=== PATIENT | male | born 1950 | race Caucasian/White ===

== ENCOUNTER 2017-08-13 09:42 | Outpatient (CLI) | payer BC, MEDICARE ==
--- NOTE | 2017-08-13 10:31 | RAD ---
LUMBAR SPINE 3 VIEWS: Date: 08/13/17 HISTORY: Pain. COMPARISON: None. FINDINGS: No acute fracture or malalignment. Mild degenerative disc space narrowing at L5-S1. Mild facet arthro tripp at L4-5 and L5-S1. Moderate vascular calcifications. No abnormal calcifications directed over the renal shadows. There are phleboliths in the pelvis. IMPRESSION: Minimal spondylosis at L5-S1. No fracture or malalignment. POS: [facility]
--- NOTE | 2017-08-13 10:36 | RAD ---
THORACIC SPINE 2 VIEWS: Date: 08/13/17 HISTORY: Shortness of breath. COMPARISON: Chest 2 view dated 2013. FINDINGS: No acute fracture. No malalignment. Mid thoracic spine compression fracture is similar. No further he ight loss. IMPRESSION: 1. No acute fracture or malalignment. 2. Old T8 compression deformity involving the superior end plate and anterior vertebral body with 20 % height loss. POS: [facility]
== END 2017-08-13 09:43 | disposition home or self-care (01) ==
LOC: RAD-FRANK 09:42
PROVIDERS: ATTEND Nurse Practitioner Family
DX: M54.6 Pain in thoracic spine (principal); M54.10 Radiculopathy, site unspecified
CPT/HCPCS: 36415; 72070; 72100; 80053; 84443; 85007; 85027

== ENCOUNTER 2017-08-26 09:22 | Outpatient (CLI) | payer BC, MEDICARE ==
--- NOTE | 2017-08-26 11:53 | ULT ---
BILATERAL LOWER EXTREMITY VENOUS DUPLEX STUDY: History: Bilateral leg pain and edema. FINDINGS: Deep veins of both lower extremities with ultrasound color doppler with spectral analysis and smita veda. Deep veins of both lower extremities show normal blood flow and compression. No evidence of DVT. IMPRESSION: Negative bilateral lower extremity venous duplex exam. No evidence of DVT. POS: [facility]
--- NOTE | 2017-08-26 13:12 | ULT ---
BILATERAL LOWER EXTREMITY ARTERIAL DOPPLER STUDY: TECHNIQUE: Ultrasound Doppler study is performed on the arteries of both lower extremities. Color Doppler with spectral analysis and velocity recordings obtained at all segments. HISTORY: Bilateral leg pain. History of smoking. Right lower extremity: All arteries of the right lower extremity show a biphasic waveform. Common femoral artery, profunda femoral, superficial femoral, popliteal, anterior tibial, and posterior tibial arteries are evaluated . The dorsal pedis artery is not identified. Velocities appear symmetric. Left lower extremity: All arteries of the left lower extremity show a biphasic waveform. Common femoral, profunda femoral, superficial, popliteal, anterior tibial, posterior tibial, and dorsalis pedis arteries evaluated. V elocities appear symmetric. IMPRESSION: Bi-phasic waveforms seen throughout all arteries of both lower extremities. Would indicate only mild peripheral arterial disease. POS: [facility]
== END 2017-08-26 09:23 | disposition home or self-care (01) ==
LOC: ULT 09:22
PROVIDERS: ATTEND Nurse Practitioner Family
DX: M79.605 Pain in left leg (principal); M79.604 Pain in right leg; R93.8 Abnormal findings on diagnostic imaging of other specified body structures; Z72.0 Tobacco use
CPT/HCPCS: 93923; 93970

== ENCOUNTER 2018-02-14 15:07 | Outpatient (CLI) | payer BC, MEDICARE ==
--- NOTE | 2018-02-14 16:39 | RAD ---
FRONTAL AND LATERAL IMAGING OF CHEST: Date: 02/14/18 COMPARISON: 06/28/14. HISTORY: COPD. FINDINGS: Stable increased linear and interstitial density and pulmonary hyperinflation noted, consistent with the provided history of COPD. There is no pneumothorax, pleural fluid, focal consolidation, or alveol ar edema. IMPRESSION: Stable interstitial prominence and pulmonary hyperinflation, consistent with the provided history of COPD. POS: [facility]
== END 2018-02-14 15:08 | disposition home or self-care (01) ==
LOC: RAD-FRANK 15:07
PROVIDERS: ATTEND Nurse Practitioner Family
DX: J44.1 Chronic obstructive pulmonary disease with (acute) exacerbation (principal); E03.9 Hypothyroidism, unspecified; R63.6 Underweight; R91.8 Other nonspecific abnormal finding of lung field; Z72.0 Tobacco use
CPT/HCPCS: 71046

== ENCOUNTER 2018-02-16 11:49 | Emergency (ER) | payer BC, MEDICARE ==
[2018-02-16 12:58] LABS: #Lymphocytes 1.3 thou/uL (1.20-3.40); #Monocytes 0.6 thou/uL (0.11-0.59); #Neutrophils 6.1 thou/uL (1.40-6.50); %Basophils 0.5 % (0.0-1.0); %Eosinophils 0.4 % (0.0-10.0); %Lymphocytes 15.8 % (21.0-51.0); %Monocytes 7.1 % (0.0-10.0); %Neutrophils 76.1 % (42.0-75.0); Hemoglobin 15.1 g/dL (14.0-18.0); Mean Corpuscular HGB CONC 33.4 g/dL (32.0-36.0); Mean Corpuscular Hemoglobin 31.4 pg (27.0-31.0); Mean Platelet Volume 6.4 fL (7.4-10.4); Platelet Count 416 thou/uL (130-400); RBC Distribution Width 11.5 % (11.5-14.5); Red Blood Cell (RBC) Count 4.81 mill/uL (4.70-6.10)
[2018-02-16 13:03] LABS: Bilirubin Negative (Negative); Blood, Urine Negative (Negative); Clarity CLEAR (Clear); Glucose, Urine (Dipstick) Negative (Negative); Leukocyte Negative (Negative); Nitrite Negative (Negative); Protein, Urine (Dipstick) Negative (Neg-Trace); Specific Gravity, Urine 1.005 (1.002-1.036); Urobilinogen 0.2 mg/dL (0.2-1.0)
[2018-02-16 13:20] LABS: Anion Gap 10 mmol/L (10-20); BUN (Urea Nitrogen) 18 mg/dL (8.4-25.7); Calc. Creatinine Clearance 0 mL/min (70-130); Calcium 9.3 mg/dL (7.8-10.44); Carbon Dioxide 32 mmol/L (23-31); Chloride 99 mmol/L (98-107); Estimated GFR-MDRD Greater than 90; Glucose 77 mg/dL (80-115); Potassium 4.3 mmol/L (3.5-5.1); Sodium 137 mmol/L (136-145)
--- NOTE | 2018-02-16 13:21 | RAD ---
PORTABLE CHEST 1 VIEW: Date: 02/16/18 Time: 1245 hours HISTORY: Dyspnea. FINDINGS/IMPRESSION: Comparison made with exam of 02/14/18. The heart size is normal. The aorta is tortuous. Changes of COPD are again seen. No lobar consolidati on, pneumothoraces, or pleural effusions are identified. There is suggestion of a 15.0 mm nodule in t he left lower lung, not definitely seen on the previous study. Recommend obtaining PA and lateral views with nipple markers. POS: [facility]
[2018-02-16] MEDS ORDERED: ISOVUE-370 76%-LOCM 1 ML ONE (13:42)
--- NOTE | 2018-02-16 15:02 | CT ---
CT ANGIO CHEST PERFORMED WITH INTRAVENOUS CONTRAST ENHANCEMENT WITH 3D RECONSTRUCTIONS: HISTORY: Shortness of breath. Cough. FINDINGS: There are marked emphysematous lung changes noted, particularly prominent changes of the upper lobes. There are no infiltrative changes seen. There are no pulmonary nodules or pleural effusions identi fied. No significant mediastinal or hilar adenopathy. Coronary artery calcifications are seen. The thorac ic aorta is normal in caliber. There is good pulmonary artery opacification obtained. There is no CT evidence for pulmonary embolus . The visualized liver parenchyma shows hypodensity within the left lobe, most likely a cyst. The stom ach wall shows questionable thickening versus under-distention. Clinical correlation and endoscopy s hould be based on clinical findings. IMPRESSION: 1. Marked emphysematous lung change. 2. No CT evidence for pulmonary embolus. 3. Questionable wall thickening to the stomach versus incomplete distention. If clinically indicated, consideration for endoscopy would be suggested. POS: [facility]
== END 2018-02-16 15:27 | disposition home or self-care (01) ==
LOC: ERS 11:49
DX: J44.1 Chronic obstructive pulmonary disease with (acute) exacerbation (principal); F17.210 Nicotine dependence, cigarettes, uncomplicated; Z71.6 Tobacco abuse counseling
CPT/HCPCS: 71045; 71275; 80048; 81003; 85025; 94640; 99406; J7620

== ENCOUNTER 2018-12-09 10:55 | Outpatient (CLI) | payer MEDICARE ==
--- NOTE | 2018-12-09 12:30 | CT ---
CT OF CHEST PERFORMED WITH CONTRAST ENHANCEMENT: Date: 12/09/18 HISTORY: COPD, tobacco abuse, abnormal previous CT exams. COMPARISON: CT studies of 07/20/17 and 02/16/18. FINDINGS: There are marked emphysematous lung changes again demonstrated, which are more severe in the upper lo bes. Pattern of centrilobular emphysema. There is no evidence of any pleural effusions. No pulmonary nodules are identified. No significant mediastinal or hilar adenopathy. The small mediastinal nodes are probably reactive and stable. No significant axillary adenopathy. Visualized liver parenchyma shows a persistent hypodense lesion in the left lobe of the liver most co mpatible with a cyst. Right and left adrenal glands are normal. Coronary calcifications are seen. There are atherosclerotic changes of the aorta. 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 Visualized portions of the kidn eys are unremarkable. IMPRESSION: Stable overall exam. Severe emphysematous lung change. POS: [facility]
[2018-12-09] MEDS ORDERED: ISOVUE-370 76%-LOCM 1 ML ONE (15:27)
== END 2018-12-09 10:56 | disposition home or self-care (01) ==
LOC: BICCT 10:55
PROVIDERS: ATTEND Nurse Practitioner Family
DX: J43.8 Other emphysema (principal); R93.89 Abnormal findings on diagnostic imaging of other specified body structures; Z72.0 Tobacco use
CPT/HCPCS: 71260; Q9966

== ENCOUNTER 2019-02-18 11:56 | Emergency (ER) | payer MEDICARE | END 2019-02-18 13:44 | disposition home or self-care (01) | LOC: ERS 11:56 | DX: T17.208A Unspecified foreign body in pharynx causing other injury, initial encounter (principal); J44.9 Chronic obstructive pulmonary disease, unspecified; F17.210 Nicotine dependence, cigarettes, uncomplicated | CPT/HCPCS: 99283 ==

== ENCOUNTER 2020-02-27 08:03 | Outpatient (CLI) | payer MEDICARE, BC ==
--- NOTE | 2020-02-27 08:29 | RAD ---
EXAM: Chest 2 views: HISTORY: Dyspnea COMPARISON: 02/14/2018 FINDINGS: There is a normal-sized cardiomediastinal silhouette. Hyperexpansion of the lungs may be secondary t o COPD. There is no evidence of consolidation, mass, or pleural effusion. The bones are unremarkable. IMPRESSION: No evidence of acute cardiopulmonary disease
== END 2020-02-27 08:04 | disposition home or self-care (01) ==
LOC: BICRAD 08:03
PROVIDERS: ATTEND Internal Medicine Critical Care Medicine
DX: R06.00 Dyspnea, unspecified (principal)
CPT/HCPCS: 71046

== ENCOUNTER 2020-12-02 01:50 | Inpatient (IN) | payer MEDICARE ==
[2020-12-02] MEDS ORDERED: Fentanyl CADD 100 ML IV SCH (02:15)
[2020-12-02 02:23] LABS: Analyzer IN Cardio ER; Base Excess (BEa) 0.1 mEq/L (-2.0 to +3.0); CO2 Tension 46.8 mmHg (35.0-45.0); Calcium, Ionized (arterial) 1.07 mmol/L (1.12-1.30); Carboxyhemoglobin (COHb) 2.6 gm% (0.0-3.0); Hemoglobin (Hb) 13.2 g/dL (14.0-18.0); O2 Tension (PaO2), arterial 113.9 mmHg (> 70.0); Potassium - ABG Lab 3.03 mmol/L (3.70-5.30); pH, Arterial 7.36 (7.35-7.45)
[2020-12-02 02:24] LABS: Puncture Site LRA
[2020-12-02 02:33] LABS: #Eosinphils 0.3 thou/uL (0.0-0.7); #Lymphocytes 2.5 thou/uL (1.20-3.40); #Monocytes 0.6 thou/uL (0.11-0.59); #Neutrophils 8.1 thou/uL (1.40-6.50); %Basophils 0.4 % (0.0-1.0); %Eosinophils 2.3 % (0.0-10.0); %Lymphocytes 21.6 % (21.0-51.0); %Monocytes 5.2 % (0.0-10.0); %Neutrophils 70.5 % (42.0-75.0); Mean Corpuscular HGB CONC 33.6 g/dL (32.0-36.0); Mean Corpuscular Hemoglobin 32.2 pg (27.0-31.0); Mean Corpuscular Volume 95.8 fL (78.0-98.0); Mean Platelet Volume 7.1 fL (7.4-10.4); Platelet Count 220 thou/uL (130-400); RBC Distribution Width 12.4 % (11.5-14.5); Red Blood Cell (RBC) Count 3.71 mill/uL (4.70-6.10); White Blood Cell (WBC) Count 11.4 thou/uL (4.8-10.8)
[2020-12-02 02:36] LABS: ALT (SGPT) 22 U/L (8-55); AST (SGOT) 25 U/L (5-34); Alkaline Phosphatase 60 U/L (40-110); Anion Gap 12 mmol/L (10-20); BUN (Urea Nitrogen) 15 mg/dL (8.4-25.7); Bilirubin, Total 0.2 mg/dL (0.2-1.2); Calc. Creatinine Clearance 0 mL/min (70-130); Calcium 7.1 mg/dL (7.8-10.44); Carbon Dioxide 25 mmol/L (23-31); Chloride 107 mmol/L (98-107); Glucose 277 mg/dL (83-110); Potassium 3.4 mmol/L (3.5-5.1); Sodium 141 mmol/L (136-145)
[2020-12-02] MEDS ORDERED: Midazolam HCl 5 mg/ml Vial ONE (02:45)
[2020-12-02 02:50] LABS: Bacteria/HPF None Seen HPF (None Seen); Bilirubin Negative (Negative); Blood, Urine Negative (Negative); Clarity Clear (Clear); Glucose, Urine (Dipstick) 500 mg/dL (Negative); Ketone, Urine Negative (Negative); Leukocyte Negative Leu/uL (Negative); Nitrite 2+ (Negative); Protein, Urine (Dipstick) 10 mg/dL (Neg-Trace); RBC/HPF 0-3 HPF (0-3); Specific Gravity, Urine 1.014 (1.002-1.036); Squamous Epithelial None Seen HPF (0-3); Urobilinogen Normal mg/dL (Less than 2); WBC/HPF 0-3 HPF (0-3)
[2020-12-02 02:58] LABS: CKMB 2.4 ng/mL (0-6.6)
[2020-12-02] MEDS ORDERED: EPINEPHrine 1 MG/10 ML Abboject SYRINGE ONE (03:13)
[2020-12-02 03:25] LABS: SARS-CoV-2 NAA Rapid Test Not Detected (NotDetected)
[2020-12-02] MEDS ORDERED: Norepinephrine 8 MG/0.9% NS 250 ML ONE (03:32)
[2020-12-02] MEDS ORDERED: Cefepime 2 GM VIAL ONE (03:53)
[2020-12-02] MEDS ORDERED: Ondansetron PF 4 MG/2 ML Vial IVP PRN (04:10)
[2020-12-02] MEDS ORDERED: Acetaminophen 325 MG TAB PO PRN (04:10)
[2020-12-02] MEDS ORDERED: Albuterol Sulfate 2.5 mg/3 ml Neb NEB PRN (04:16)
[2020-12-02] MEDS ORDERED: Potassium Chloride 20 MEQ in Premix Bag 1 BAG IVPB SCH (04:30)
[2020-12-02] MEDS ORDERED: HumaLOG 300 UNITS/3 ML VIAL SC PRN (04:44)
[2020-12-02] MEDS ORDERED: Dextrose 50% Abboject 50 ML SYRINGE SLOW IVP PRN (04:44)
[2020-12-02] MEDS ORDERED: Dextrose 5% in Water 1,000 ML IV PRN (04:44)
[2020-12-02 06:05] LABS: Troponin I 0.363 ng/mL (< 0.028)
[2020-12-02] MEDS: Sodium Chloride 0.9% 1,000 ML IV SCH ×2 (06:07→16:50)
[2020-12-02] MEDS ORDERED: Norepinephrine 8 MG/0.9% NS 250 ML IVPB SCH (07:00)
[2020-12-02] MEDS: VANCOMYCIN 1.25 GM/250 ML BAG 1.25 GM in Premix Bag 1 BAG IVPB SCH (07:58)
[2020-12-02 08:30] LABS: Troponin I 0.504 ng/mL (< 0.028)
[2020-12-02] MEDS ORDERED: Lorazepam 2 MG/ML VIAL ONE (08:45)
[2020-12-02] MEDS ORDERED: Morphine 4 MG/ML VIAL ONE (08:45)
[2020-12-02] MEDS: Enoxaparin Sodium 40 MG/0.4 ML SYRINGE SC SCH (10:12)
[2020-12-02] MEDS: Famotidine 20 MG TAB PO SCH ×2 (10:12→20:01)
[2020-12-02] MEDS ORDERED: Lorazepam 2 MG/ML VIAL SLOW IVP SCH (10:15)
[2020-12-02] MEDS ORDERED: Morphine 4 MG/ML VIAL SLOW IVP SCH (10:15)
[2020-12-02] MEDS ORDERED: Fentanyl CADD 100 ML ONE (12:04)
[2020-12-02] MEDS: methylPREDNISolone Sod Succ 40 MG VIAL IVP SCH ×2 (12:22→20:01)
[2020-12-02] MEDS ORDERED: Iopamidol-370 76% 500 ML 1 ML ONE (14:05)
[2020-12-02] MEDS: Cefepime 2 GM in Sodium Chloride 0.9% 100 ML IVPB SCH (15:37)
[2020-12-02] MEDS ORDERED: Morphine 2 MG/ML VIAL SLOW IVP PRN (16:00)
[2020-12-02] MEDS ORDERED: Propofol BOLUS 1,000 MG/100 ML VIAL IV PRN (16:00)
[2020-12-02] MEDS ORDERED: Fentanyl BOLUS 250 ML IVPB PRN (16:00)
[2020-12-02] MEDS ORDERED: DISCONTINUE PREVIOUS NARCOTIC PAIN MEDICATIONS AND BENZODIAZEPINES FS SCH (16:00)
[2020-12-02] MEDS: Lorazepam 2 MG/ML VIAL SLOW IVP PRN ×2 (16:48→20:01)
[2020-12-03] MEDS: Lorazepam 2 MG/ML VIAL SLOW IVP PRN ×3 (00:18→19:59)
[2020-12-03] MEDS ORDERED: Fentanyl CADD 100 ML ONE ×2 (03:19→16:55)
[2020-12-03] MEDS: Cefepime 2 GM in Sodium Chloride 0.9% 100 ML IVPB SCH ×2 (03:33→16:46)
[2020-12-03] MEDS: methylPREDNISolone Sod Succ 40 MG VIAL IVP SCH ×3 (03:33→20:05)
[2020-12-03 05:05] LABS: #Lymphocytes 1.1 thou/uL (1.20-3.40); #Monocytes 0.8 thou/uL (0.11-0.59); #Neutrophils 10.6 thou/uL (1.40-6.50); %Basophils 0.3 % (0.0-1.0); %Eosinophils 0.1 % (0.0-10.0); %Lymphocytes 8.9 % (21.0-51.0); %Monocytes 6.1 % (0.0-10.0); %Neutrophils 84.7 % (42.0-75.0); Hemoglobin 11.1 g/dL (14.0-18.0); Mean Corpuscular HGB CONC 32.5 g/dL (32.0-36.0); Mean Corpuscular Hemoglobin 31.2 pg (27.0-31.0); Mean Corpuscular Volume 96.2 fL (78.0-98.0); Mean Platelet Volume 7.6 fL (7.4-10.4); Platelet Count 246 thou/uL (130-400); RBC Distribution Width 12.7 % (11.5-14.5); Red Blood Cell (RBC) Count 3.56 mill/uL (4.70-6.10); White Blood Cell (WBC) Count 12.5 thou/uL (4.8-10.8)
[2020-12-03 05:09] LABS: Hemoglobin A1c 5.7 % (4.0-6.0)
[2020-12-03 05:28] LABS: Anion Gap 10 mmol/L (10-20); BUN (Urea Nitrogen) 14 mg/dL (8.4-25.7); Calc. Creatinine Clearance 69 mL/min (70-130); Calcium 7.5 mg/dL (7.8-10.44); Carbon Dioxide 26 mmol/L (23-31); Chloride 111 mmol/L (98-107); Glucose 135 mg/dL (83-110); Magnesium 1.8 mg/dL (1.6-2.6); Potassium 4.1 mmol/L (3.5-5.1); Sodium 143 mmol/L (136-145)
[2020-12-03] MEDS: VANCOMYCIN 1.25 GM/250 ML BAG 1.25 GM in Premix Bag 1 BAG IVPB SCH (08:56)
[2020-12-03] MEDS: Famotidine 20 MG TAB PO SCH ×2 (08:57→20:05)
[2020-12-03] MEDS: Enoxaparin Sodium 40 MG/0.4 ML SYRINGE SC SCH (08:57)
[2020-12-03] MEDS ORDERED: Enoxaparin Sodium 40 MG/0.4 ML SYRINGE SC SCH (09:00)
[2020-12-03] MEDS: Sodium Chloride 0.9% 1,000 ML IV SCH ×2 (09:10→20:05)
[2020-12-03] MEDS: Fentanyl CADD 100 ML IV SCH (17:16)
[2020-12-03] MEDS: Propofol 1,000 MG/100 ML VIAL IV PRN (20:33)
[2020-12-04] MEDS: Lorazepam 2 MG/ML VIAL SLOW IVP PRN ×4 (01:16→22:41)
[2020-12-04] MEDS: Cefepime 2 GM in Sodium Chloride 0.9% 100 ML IVPB SCH ×2 (03:01→16:04)
[2020-12-04] MEDS: methylPREDNISolone Sod Succ 40 MG VIAL IVP SCH ×3 (03:02→19:42)
[2020-12-04 04:30] LABS: #Monocytes 0.3 thou/uL (0.11-0.59); %Basophils 0.2 % (0.0-1.0); %Eosinophils 0.1 % (0.0-10.0); %Lymphocytes 11.3 % (21.0-51.0); %Monocytes 2.7 % (0.0-10.0); %Neutrophils 85.8 % (42.0-75.0); Hemoglobin 10.8 g/dL (14.0-18.0); Mean Corpuscular HGB CONC 33.7 g/dL (32.0-36.0); Mean Corpuscular Hemoglobin 32.2 pg (27.0-31.0); Mean Corpuscular Volume 95.5 fL (78.0-98.0); Mean Platelet Volume 7.6 fL (7.4-10.4); Platelet Count 223 thou/uL (130-400); RBC Distribution Width 12.7 % (11.5-14.5); Red Blood Cell (RBC) Count 3.36 mill/uL (4.70-6.10); White Blood Cell (WBC) Count 9.3 thou/uL (4.8-10.8)
[2020-12-04 04:52] LABS: Anion Gap 9 mmol/L (10-20); BUN (Urea Nitrogen) 20 mg/dL (8.4-25.7); Calc. Creatinine Clearance 80 mL/min (70-130); Calcium 7.5 mg/dL (7.8-10.44); Carbon Dioxide 25 mmol/L (23-31); Chloride 109 mmol/L (98-107); Glucose 130 mg/dL (83-110); Magnesium 2.2 mg/dL (1.6-2.6); Potassium 3.5 mmol/L (3.5-5.1); Sodium 139 mmol/L (136-145)
[2020-12-04] MEDS: VANCOMYCIN 1.25 GM/250 ML BAG 1.25 GM in Premix Bag 1 BAG IVPB SCH (08:19)
[2020-12-04] MEDS: Famotidine 20 MG TAB PO SCH ×2 (08:20→20:05)
[2020-12-04] MEDS: Enoxaparin Sodium 40 MG/0.4 ML SYRINGE SC SCH (08:21)
[2020-12-04 09:13] LABS: Vancomycin, Trough 29.1 ug/mL
[2020-12-04] MEDS: Sodium Chloride 0.9% 1,000 ML IV SCH ×2 (12:22→23:06)
[2020-12-04] MEDS: Propofol 1,000 MG/100 ML VIAL IV PRN (16:04)
[2020-12-05] MEDS: Lorazepam 2 MG/ML VIAL SLOW IVP PRN ×5 (00:22→21:59)
[2020-12-05] MEDS ORDERED: Fentanyl CADD 100 ML ONE (03:31)
[2020-12-05] MEDS: Cefepime 2 GM in Sodium Chloride 0.9% 100 ML IVPB SCH ×2 (03:35→15:21)
[2020-12-05] MEDS: methylPREDNISolone Sod Succ 40 MG VIAL IVP SCH ×3 (03:35→20:03)
[2020-12-05 03:54] LABS: #Lymphocytes 0.7 thou/uL (1.20-3.40); #Monocytes 0.6 thou/uL (0.11-0.59); #Neutrophils 8.6 thou/uL (1.40-6.50); %Basophils 0.4 % (0.0-1.0); %Eosinophils 0.2 % (0.0-10.0); %Lymphocytes 6.9 % (21.0-51.0); %Monocytes 6.2 % (0.0-10.0); %Neutrophils 86.4 % (42.0-75.0); Hemoglobin 11.3 g/dL (14.0-18.0); Mean Corpuscular HGB CONC 34.5 g/dL (32.0-36.0); Mean Corpuscular Hemoglobin 33.2 pg (27.0-31.0); Mean Platelet Volume 7.5 fL (7.4-10.4); Platelet Count 239 thou/uL (130-400); RBC Distribution Width 12.7 % (11.5-14.5)
[2020-12-05 04:16] LABS: Anion Gap 11 mmol/L (10-20); BUN (Urea Nitrogen) 24 mg/dL (8.4-25.7); Calc. Creatinine Clearance 86 mL/min (70-130); Calcium 7.9 mg/dL (7.8-10.44); Carbon Dioxide 24 mmol/L (23-31); Chloride 107 mmol/L (98-107); Glucose 135 mg/dL (83-110); Magnesium 2.7 mg/dL (1.6-2.6); Potassium 4.1 mmol/L (3.5-5.1); Sodium 138 mmol/L (136-145)
[2020-12-05] MEDS: Propofol 1,000 MG/100 ML VIAL IV PRN ×2 (05:18→17:29)
[2020-12-05 07:58] LABS: Vancomycin, Trough 6.8 ug/mL
[2020-12-05] MEDS: VANCOMYCIN 1.25 GM/250 ML BAG 1.25 GM in Premix Bag 1 BAG IVPB SCH (08:33)
[2020-12-05] MEDS: Enoxaparin Sodium 40 MG/0.4 ML SYRINGE SC SCH (08:36)
[2020-12-05] MEDS: Famotidine 20 MG TAB PO SCH ×2 (08:36→20:03)
[2020-12-05] MEDS ORDERED: VANCOMYCIN 1.25 GM/250 ML BAG 1.25 GM in Premix Bag 1 BAG IVPB SCH (09:00)
[2020-12-05] MEDS ORDERED: Vancomycin 1 GM in Premix Bag 1 BAG IVPB SCH ×2 (09:00→21:00)
[2020-12-05] MEDS ORDERED: Metoclopramide HCl 10 MG/2 ML VIAL IVP PRN (09:35)
[2020-12-05] MEDS ORDERED: Magnesium 2 GM/50 ML 2 GM in Premix Bag 1 BAG IVPB SCH (09:45)
[2020-12-05] MEDS: Scopolamine 1.5 mg/72 hour Patch TD SCH (09:55)
[2020-12-05] MEDS: Sodium Chloride 0.9% 1,000 ML IV SCH (14:29)
[2020-12-05] MEDS ORDERED: guaiFENesin ER 600 MG TAB PO SCH (21:00)
[2020-12-06] MEDS: Lorazepam 2 MG/ML VIAL SLOW IVP PRN ×3 (00:44→06:08)
[2020-12-06] MEDS: Cefepime 2 GM in Sodium Chloride 0.9% 100 ML IVPB SCH ×2 (03:28→15:00)
[2020-12-06] MEDS: methylPREDNISolone Sod Succ 40 MG VIAL IVP SCH ×3 (03:28→20:28)
[2020-12-06] MEDS ORDERED: GUAIFENESIN SF SOLN 200 MG/10 ML UDCUP PO SCH (08:00)
[2020-12-06] MEDS: Enoxaparin Sodium 40 MG/0.4 ML SYRINGE SC SCH (08:28)
[2020-12-06] MEDS: Famotidine 20 MG TAB PO SCH ×2 (08:28→20:27)
[2020-12-06] MEDS: Sodium Chloride 0.9% 1,000 ML IV SCH ×2 (08:37→14:11)
[2020-12-06] MEDS: Propofol 1,000 MG/100 ML VIAL IV PRN ×2 (10:55→20:12)
[2020-12-06] MEDS: GUAIFENESIN SF SOLN 200 MG/10 ML UDCUP PO SCH ×2 (13:50→21:30)
[2020-12-06] MEDS ORDERED: Bisacodyl 10 MG SUPP PR PRN (17:12)
[2020-12-06] MEDS: Metoclopramide HCl 10 MG/2 ML VIAL IVP SCH ×2 (17:24→23:02)
[2020-12-07] MEDS: Cefepime 2 GM in Sodium Chloride 0.9% 100 ML IVPB SCH ×2 (04:23→16:35)
[2020-12-07] MEDS: methylPREDNISolone Sod Succ 40 MG VIAL IVP SCH ×3 (04:23→20:27)
[2020-12-07] MEDS: Sodium Chloride 0.9% 1,000 ML IV SCH ×2 (04:33→18:32)
[2020-12-07] MEDS: Propofol 1,000 MG/100 ML VIAL IV PRN ×3 (04:55→23:16)
[2020-12-07 05:10] LABS: Hemoglobin 11.3 g/dL (14.0-18.0); Mean Corpuscular HGB CONC 32.6 g/dL (32.0-36.0); Mean Corpuscular Hemoglobin 31.4 pg (27.0-31.0); Mean Corpuscular Volume 96.3 fL (78.0-98.0); Mean Platelet Volume 7.3 fL (7.4-10.4); Platelet Count 247 thou/uL (130-400); RBC Distribution Width 12.9 % (11.5-14.5); White Blood Cell (WBC) Count 10.3 thou/uL (4.8-10.8)
[2020-12-07 05:15] LABS: Anion Gap 10 mmol/L (10-20); BUN (Urea Nitrogen) 26 mg/dL (8.4-25.7); Calc. Creatinine Clearance 91 mL/min (70-130); Calcium 8.1 mg/dL (7.8-10.44); Carbon Dioxide 31 mmol/L (23-31); Chloride 103 mmol/L (98-107); Glucose 115 mg/dL (83-110); Potassium 5.2 mmol/L (3.5-5.1); Sodium 139 mmol/L (136-145)
[2020-12-07] MEDS: GUAIFENESIN SF SOLN 200 MG/10 ML UDCUP PO SCH ×3 (06:05→23:16)
[2020-12-07] MEDS: Metoclopramide HCl 10 MG/2 ML VIAL IVP SCH ×4 (06:05→23:16)
[2020-12-07 06:07] LABS: Band 13 % (5-11); Lymphocytes 10 % (21-51); MDiff Complete? YES; Monocytes 10 % (0-10); Neutrophil 67 % (42-75)
[2020-12-07] MEDS: Enoxaparin Sodium 40 MG/0.4 ML SYRINGE SC SCH (11:13)
[2020-12-07] MEDS: Lorazepam 2 MG/ML VIAL SLOW IVP PRN ×2 (11:42→20:27)
[2020-12-07] MEDS: Famotidine 20 MG TAB PO SCH ×2 (12:33→20:27)
[2020-12-07] MEDS ORDERED: Fentanyl CADD 100 ML ONE (20:40)
[2020-12-08] MEDS: Lorazepam 2 MG/ML VIAL SLOW IVP PRN ×2 (03:08→15:48)
[2020-12-08] MEDS: Cefepime 2 GM in Sodium Chloride 0.9% 100 ML IVPB SCH ×2 (04:02→15:48)
[2020-12-08] MEDS: methylPREDNISolone Sod Succ 40 MG VIAL IVP SCH ×3 (04:03→20:24)
[2020-12-08 05:52] LABS: Hemoglobin 11.7 g/dL (14.0-18.0); Mean Corpuscular HGB CONC 34.6 g/dL (32.0-36.0); Mean Corpuscular Hemoglobin 33.4 pg (27.0-31.0); Mean Corpuscular Volume 96.6 fL (78.0-98.0); Platelet Count 234 thou/uL (130-400); RBC Distribution Width 12.7 % (11.5-14.5); Red Blood Cell (RBC) Count 3.49 mill/uL (4.70-6.10); White Blood Cell (WBC) Count 9.5 thou/uL (4.8-10.8)
[2020-12-08 06:06] LABS: Band 9 % (5-11); Lymphocytes 12 % (21-51); MDiff Complete? YES; Monocytes 8 % (0-10); Myelocyte 2 % (0-0); Neutrophil 68 % (42-75); Reactive Lymphocytes 1 % (0-10)
[2020-12-08] MEDS: Metoclopramide HCl 10 MG/2 ML VIAL IVP SCH ×3 (06:06→18:08)
[2020-12-08] MEDS: GUAIFENESIN SF SOLN 200 MG/10 ML UDCUP PO SCH ×3 (06:06→21:43)
[2020-12-08] MEDS: Sodium Chloride 0.9% 1,000 ML IV SCH ×2 (06:07→20:17)
[2020-12-08] MEDS: Levothyroxine Sodium 50 MCG TAB PO SCH (06:07)
[2020-12-08 06:13] LABS: Anion Gap 9 mmol/L (10-20); BUN (Urea Nitrogen) 24 mg/dL (8.4-25.7); Calc. Creatinine Clearance 0 mL/min (70-130); Calcium 8.2 mg/dL (7.8-10.44); Carbon Dioxide 35 mmol/L (23-31); Chloride 99 mmol/L (98-107); Glucose 130 mg/dL (83-110); Potassium 5.1 mmol/L (3.5-5.1); Sodium 138 mmol/L (136-145)
[2020-12-08] MEDS: Famotidine 20 MG TAB PO SCH ×2 (10:19→20:24)
[2020-12-08] MEDS: Scopolamine 1.5 mg/72 hour Patch TD SCH (10:19)
[2020-12-08] MEDS: Enoxaparin Sodium 40 MG/0.4 ML SYRINGE SC SCH (10:20)
[2020-12-08] MEDS: Propofol 1,000 MG/100 ML VIAL IV PRN ×2 (13:22→23:48)
[2020-12-09] MEDS: Metoclopramide HCl 10 MG/2 ML VIAL IVP SCH ×4 (01:38→18:31)
[2020-12-09 04:48] LABS: Anion Gap 10 mmol/L (10-20); BUN (Urea Nitrogen) 23 mg/dL (8.4-25.7); Calc. Creatinine Clearance 0 mL/min (70-130); Carbon Dioxide 37 mmol/L (23-31); Chloride 96 mmol/L (98-107); Glucose 137 mg/dL (83-110); Potassium 4.8 mmol/L (3.5-5.1); Sodium 138 mmol/L (136-145)
[2020-12-09 05:08] LABS: Band 12 % (5-11); Hemoglobin 11.2 g/dL (14.0-18.0); Lymphocytes 9 % (21-51); MDiff Complete? YES; Mean Corpuscular HGB CONC 33.3 g/dL (32.0-36.0); Mean Corpuscular Hemoglobin 32.1 pg (27.0-31.0); Mean Corpuscular Volume 96.3 fL (78.0-98.0); Mean Platelet Volume 7.4 fL (7.4-10.4); Monocytes 4 % (0-10); Neutrophil 75 % (42-75); Platelet Count 229 thou/uL (130-400); RBC Distribution Width 12.6 % (11.5-14.5); White Blood Cell (WBC) Count 9.6 thou/uL (4.8-10.8)
[2020-12-09] MEDS: Cefepime 2 GM in Sodium Chloride 0.9% 100 ML IVPB SCH ×2 (05:43→15:50)
[2020-12-09] MEDS: methylPREDNISolone Sod Succ 40 MG VIAL IVP SCH ×3 (05:44→20:04)
[2020-12-09] MEDS: Sodium Chloride 0.9% 1,000 ML IV SCH ×2 (06:51→20:04)
[2020-12-09] MEDS: Levothyroxine Sodium 50 MCG TAB PO SCH (06:51)
[2020-12-09] MEDS: GUAIFENESIN SF SOLN 200 MG/10 ML UDCUP PO SCH ×3 (06:51→23:14)
[2020-12-09] MEDS: Propofol 1,000 MG/100 ML VIAL IV PRN ×2 (08:30→23:14)
[2020-12-09] MEDS: Famotidine 20 MG TAB PO SCH ×2 (08:30→20:05)
[2020-12-09] MEDS: Enoxaparin Sodium 40 MG/0.4 ML SYRINGE SC SCH (08:30)
[2020-12-09] MEDS ORDERED: Fentanyl CADD 100 ML ONE (08:35)
[2020-12-09] MEDS: Fentanyl CADD 100 ML IV SCH (08:38)
[2020-12-09] MEDS: Lorazepam 2 MG/ML VIAL SLOW IVP PRN ×2 (08:48→18:26)
[2020-12-10] MEDS: Lorazepam 2 MG/ML VIAL SLOW IVP PRN ×3 (00:01→14:02)
[2020-12-10] MEDS: Metoclopramide HCl 10 MG/2 ML VIAL IVP SCH ×5 (00:16→23:13)
[2020-12-10 04:22] LABS: Band 4 % (5-11); Hemoglobin 11.3 g/dL (14.0-18.0); Lymphocytes 11 % (21-51); MDiff Complete? YES; Mean Corpuscular HGB CONC 33.1 g/dL (32.0-36.0); Mean Corpuscular Hemoglobin 31.9 pg (27.0-31.0); Mean Corpuscular Volume 96.2 fL (78.0-98.0); Mean Platelet Volume 7.2 fL (7.4-10.4); Monocytes 8 % (0-10); Neutrophil 74 % (42-75); Platelet Count 245 thou/uL (130-400); RBC Distribution Width 12.5 % (11.5-14.5); Reactive Lymphocytes 3 % (0-10); Red Blood Cell (RBC) Count 3.55 mill/uL (4.70-6.10); White Blood Cell (WBC) Count 11.6 thou/uL (4.8-10.8)
[2020-12-10] MEDS: Cefepime 2 GM in Sodium Chloride 0.9% 100 ML IVPB SCH ×2 (04:31→16:21)
[2020-12-10] MEDS: methylPREDNISolone Sod Succ 40 MG VIAL IVP SCH ×3 (04:32→19:47)
[2020-12-10 05:11] LABS: BUN (Urea Nitrogen) 25 mg/dL (8.4-25.7); Calc. Creatinine Clearance 101 mL/min (70-130); Calcium 8.4 mg/dL (7.8-10.44); Glucose 105 mg/dL (83-110)
[2020-12-10 05:22] LABS: Anion Gap 12 mmol/L (10-20); Carbon Dioxide 37 mmol/L (23-31); Chloride 94 mmol/L (98-107); Potassium 4.8 mmol/L (3.5-5.1); Sodium 138 mmol/L (136-145)
[2020-12-10] MEDS: Levothyroxine Sodium 50 MCG TAB PO SCH (05:43)
[2020-12-10] MEDS: GUAIFENESIN SF SOLN 200 MG/10 ML UDCUP PO SCH ×3 (05:43→21:27)
[2020-12-10] MEDS: Famotidine 20 MG TAB PO SCH ×2 (07:49→19:58)
[2020-12-10] MEDS: Enoxaparin Sodium 40 MG/0.4 ML SYRINGE SC SCH (07:49)
[2020-12-10] MEDS ORDERED: Fentanyl CADD 100 ML ONE (09:33)
[2020-12-10] MEDS: Propofol 1,000 MG/100 ML VIAL IV PRN ×2 (09:45→21:01)
[2020-12-10] MEDS: Sodium Chloride 0.9% 1,000 ML IV SCH ×2 (09:46→20:59)
[2020-12-10] MEDS ORDERED: EPINEPHrine 1 MG/ML AMP ONE (10:59)
[2020-12-10] MEDS ORDERED: Bupivacaine PF 0.5% 30 ML VIAL ONE (10:59)
[2020-12-10] MEDS ORDERED: Rocuronium Bromide 10 MG/ML (10ML VIAL) ONE (11:28)
[2020-12-10] MEDS ORDERED: PROPOFOL 200 MG/20 ML VIAL ONE (11:28)
[2020-12-10] MEDS ORDERED: Lidocaine 1% w/Epinephrine 1:100K 20 ML VIAL ONE (13:11)
[2020-12-11] MEDS: Sodium Chloride 0.9% 1,000 ML IV SCH ×2 (02:08→15:25)
[2020-12-11] MEDS: Cefepime 2 GM in Sodium Chloride 0.9% 100 ML IVPB SCH ×2 (03:22→15:19)
[2020-12-11] MEDS: methylPREDNISolone Sod Succ 40 MG VIAL IVP SCH ×3 (03:23→20:05)
[2020-12-11 04:30] LABS: Anion Gap 11 mmol/L (10-20); BUN (Urea Nitrogen) 21 mg/dL (8.4-25.7); Calc. Creatinine Clearance 95 mL/min (70-130); Calcium 8.1 mg/dL (7.8-10.44); Carbon Dioxide 37 mmol/L (23-31); Chloride 96 mmol/L (98-107); Glucose 109 mg/dL (83-110); Potassium 4.7 mmol/L (3.5-5.1); Sodium 139 mmol/L (136-145)
[2020-12-11] MEDS: Levothyroxine Sodium 50 MCG TAB PO SCH (05:08)
[2020-12-11] MEDS: GUAIFENESIN SF SOLN 200 MG/10 ML UDCUP PO SCH ×3 (05:08→21:39)
[2020-12-11] MEDS: Metoclopramide HCl 10 MG/2 ML VIAL IVP SCH ×3 (05:09→17:46)
[2020-12-11] MEDS: Propofol 1,000 MG/100 ML VIAL IV PRN (05:18)
[2020-12-11 05:23] LABS: Band 12 % (5-11); Hemoglobin 11.5 g/dL (14.0-18.0); Lymphocytes 15 % (21-51); MDiff Complete? YES; Mean Corpuscular HGB CONC 32.6 g/dL (32.0-36.0); Mean Corpuscular Hemoglobin 31.2 pg (27.0-31.0); Mean Corpuscular Volume 95.7 fL (78.0-98.0); Mean Platelet Volume 7.1 fL (7.4-10.4); Monocytes 6 % (0-10); Neutrophil 67 % (42-75); Platelet Count 240 thou/uL (130-400); RBC Distribution Width 12.5 % (11.5-14.5); Red Blood Cell (RBC) Count 3.69 mill/uL (4.70-6.10); White Blood Cell (WBC) Count 10.1 thou/uL (4.8-10.8)
[2020-12-11 08:16] LABS: Actual Bicarbonate (HCO3a) 33.8 mEq/L (22-28); Base Excess (BEa) 8.9 mEq/L (-2.0 to +3.0); CO2 Tension 47.4 mmHg (35.0-45.0); Calcium, Ionized (arterial) 1.13 mmol/L (1.12-1.30); Carboxyhemoglobin (COHb) 0.9 gm% (0.0-3.0); Hemoglobin (Hb) 12.6 g/dL (14.0-18.0); O2 Tension (PaO2), arterial 70.8 mmHg (> 70.0); Potassium - ABG Lab 4.63 mmol/L (3.70-5.30); pH, Arterial 7.47 (7.35-7.45)
[2020-12-11 08:18] LABS: Puncture Site RBA
[2020-12-11] MEDS: Famotidine 20 MG TAB PO SCH ×2 (08:27→20:06)
[2020-12-11] MEDS: Scopolamine 1.5 mg/72 hour Patch TD SCH (08:48)
[2020-12-11] MEDS: Lorazepam 2 MG/ML VIAL SLOW IVP PRN (20:05)
[2020-12-12] MEDS: Metoclopramide HCl 10 MG/2 ML VIAL IVP SCH ×4 (00:04→17:27)
[2020-12-12] MEDS: Lorazepam 2 MG/ML VIAL SLOW IVP PRN ×5 (00:11→18:50)
[2020-12-12] MEDS: Cefepime 2 GM in Sodium Chloride 0.9% 100 ML IVPB SCH ×2 (03:58→14:37)
[2020-12-12] MEDS: methylPREDNISolone Sod Succ 40 MG VIAL IVP SCH ×3 (03:59→20:05)
[2020-12-12 05:22] LABS: Hemoglobin 11.3 g/dL (14.0-18.0); Mean Corpuscular Hemoglobin 32.5 pg (27.0-31.0); Mean Corpuscular Volume 95.6 fL (78.0-98.0); Mean Platelet Volume 7.7 fL (7.4-10.4); Platelet Count 228 thou/uL (130-400); RBC Distribution Width 12.2 % (11.5-14.5); Red Blood Cell (RBC) Count 3.49 mill/uL (4.70-6.10); White Blood Cell (WBC) Count 8.7 thou/uL (4.8-10.8)
[2020-12-12 05:37] LABS: Anion Gap 11 mmol/L (10-20); BUN (Urea Nitrogen) 25 mg/dL (8.4-25.7); Calc. Creatinine Clearance 99 mL/min (70-130); Calcium 8.2 mg/dL (7.8-10.44); Carbon Dioxide 35 mmol/L (23-31); Chloride 98 mmol/L (98-107); Glucose 123 mg/dL (83-110); Potassium 4.4 mmol/L (3.5-5.1); Sodium 140 mmol/L (136-145)
[2020-12-12] MEDS: Levothyroxine Sodium 50 MCG TAB PO SCH (05:47)
[2020-12-12] MEDS: GUAIFENESIN SF SOLN 200 MG/10 ML UDCUP PO SCH ×3 (05:47→21:39)
[2020-12-12] MEDS: Sodium Chloride 0.9% 1,000 ML IV SCH ×2 (05:47→17:27)
[2020-12-12 05:53] LABS: Band 8 % (5-11); Lymphocytes 7 % (21-51); MDiff Complete? YES; Monocytes 4 % (0-10); Myelocyte 2 % (0-0); Neutrophil 78 % (42-75); Reactive Lymphocytes 1 % (0-10)
[2020-12-12] MEDS: Famotidine 20 MG TAB PO SCH ×2 (09:08→20:05)
[2020-12-12] MEDS: Enoxaparin Sodium 40 MG/0.4 ML SYRINGE SC SCH (09:09)
[2020-12-12] MEDS: Nicotine 14 MG PATCH TD SCH (09:28)
[2020-12-12] MEDS ORDERED: Morphine 2 MG/ML VIAL SLOW IVP PRN (16:25)
[2020-12-12] MEDS ORDERED: Fentanyl BOLUS 250 ML IVPB PRN (16:26)
[2020-12-12] MEDS ORDERED: Fentanyl CADD 100 ML IV SCH (16:30)
[2020-12-12] MEDS: Budesonide 0.5 MG/2 ML NEB NEB SCH (19:09)
[2020-12-13] MEDS: Lorazepam 2 MG/ML VIAL SLOW IVP PRN ×2 (01:20→07:47)
[2020-12-13] MEDS: Metoclopramide HCl 10 MG/2 ML VIAL IVP SCH ×5 (01:20→23:29)
[2020-12-13] MEDS ORDERED: Cefepime 2 GM in Sodium Chloride 0.9% 100 ML IVPB SCH (04:00)
[2020-12-13] MEDS: methylPREDNISolone Sod Succ 40 MG VIAL IVP SCH ×3 (04:13→20:31)
[2020-12-13] MEDS: GUAIFENESIN SF SOLN 200 MG/10 ML UDCUP PO SCH ×3 (06:29→21:01)
[2020-12-13] MEDS: Levothyroxine Sodium 50 MCG TAB PO SCH (06:29)
[2020-12-13 06:55] LABS: Actual Bicarbonate (HCO3a) 34.3 mEq/L (22-28); Base Excess (BEa) 9.4 mEq/L (-2.0 to +3.0); CO2 Tension 47.9 mmHg (35.0-45.0); Calcium, Ionized (arterial) 1.15 mmol/L (1.12-1.30); Carboxyhemoglobin (COHb) 0.7 gm% (0.0-3.0); Hemoglobin (Hb) 12.3 g/dL (14.0-18.0); O2 Tension (PaO2), arterial 70.7 mmHg (> 70.0); Potassium - ABG Lab 4.04 mmol/L (3.70-5.30); pH, Arterial 7.47 (7.35-7.45)
[2020-12-13 07:07] LABS: Hemoglobin 12.2 g/dL (14.0-18.0); Mean Corpuscular HGB CONC 33.8 g/dL (32.0-36.0); Mean Corpuscular Hemoglobin 32.5 pg (27.0-31.0); Mean Platelet Volume 7.4 fL (7.4-10.4); Platelet Count 223 thou/uL (130-400); RBC Distribution Width 12.2 % (11.5-14.5); Red Blood Cell (RBC) Count 3.77 mill/uL (4.70-6.10); White Blood Cell (WBC) Count 13.1 thou/uL (4.8-10.8)
[2020-12-13 07:17] LABS: ALV-art Gradient 83.325 mmHg (0-20); Puncture Site RRA
[2020-12-13] MEDS: Budesonide 0.5 MG/2 ML NEB NEB SCH ×2 (07:21→18:41)
[2020-12-13 07:31] LABS: Anion Gap 15 mmol/L (10-20); BUN (Urea Nitrogen) 23 mg/dL (8.4-25.7); Calc. Creatinine Clearance 95 mL/min (70-130); Calcium 8.4 mg/dL (7.8-10.44); Carbon Dioxide 28 mmol/L (23-31); Chloride 101 mmol/L (98-107); Glucose 113 mg/dL (83-110); Potassium 4.4 mmol/L (3.5-5.1); Sodium 140 mmol/L (136-145)
[2020-12-13] MEDS: Sodium Chloride 0.9% 1,000 ML IV SCH (07:50)
[2020-12-13] MEDS: Famotidine 20 MG TAB PO SCH ×2 (08:37→20:31)
[2020-12-13] MEDS: Enoxaparin Sodium 40 MG/0.4 ML SYRINGE SC SCH (08:37)
[2020-12-13] MEDS: Nicotine 14 MG PATCH TD SCH ×2 (10:00→14:45)
[2020-12-13 10:14] LABS: Band 9 % (5-11); Lymphocytes 8 % (21-51); MDiff Complete? YES; Monocytes 3 % (0-10); Neutrophil 76 % (42-75); RBC Morphology Normal; Reactive Lymphocytes 4 % (0-10)
[2020-12-14] MEDS: methylPREDNISolone Sod Succ 40 MG VIAL IVP SCH ×3 (03:38→20:02)
[2020-12-14 05:09] LABS: Band 2 % (5-11); Hemoglobin 11.2 g/dL (14.0-18.0); Lymphocytes 14 % (21-51); MDiff Complete? YES; Mean Corpuscular HGB CONC 32.9 g/dL (32.0-36.0); Mean Corpuscular Hemoglobin 31.2 pg (27.0-31.0); Mean Corpuscular Volume 94.7 fL (78.0-98.0); Mean Platelet Volume 7.3 fL (7.4-10.4); Monocytes 1 % (0-10); Neutrophil 83 % (42-75); Platelet Count 250 thou/uL (130-400); Platelet Morphology Comment Appears Adequate; RBC Distribution Width 12.2 % (11.5-14.5); White Blood Cell (WBC) Count 8.8 thou/uL (4.8-10.8)
[2020-12-14 05:13] LABS: Anion Gap 12 mmol/L (10-20); BUN (Urea Nitrogen) 25 mg/dL (8.4-25.7); Calc. Creatinine Clearance 100 mL/min (70-130); Calcium 8.2 mg/dL (7.8-10.44); Carbon Dioxide 31 mmol/L (23-31); Chloride 100 mmol/L (98-107); Glucose 115 mg/dL (83-110); Sodium 139 mmol/L (136-145)
[2020-12-14] MEDS: GUAIFENESIN SF SOLN 200 MG/10 ML UDCUP PO SCH ×3 (06:01→22:30)
[2020-12-14] MEDS: Levothyroxine Sodium 50 MCG TAB PO SCH (06:01)
[2020-12-14] MEDS: Metoclopramide HCl 10 MG/2 ML VIAL IVP SCH ×4 (06:02→23:05)
[2020-12-14] MEDS: Budesonide 0.5 MG/2 ML NEB NEB SCH ×2 (07:44→18:58)
[2020-12-14] MEDS: Scopolamine 1.5 mg/72 hour Patch TD SCH (07:51)
[2020-12-14] MEDS: Famotidine 20 MG TAB PO SCH ×2 (07:53→20:02)
[2020-12-14] MEDS: Enoxaparin Sodium 40 MG/0.4 ML SYRINGE SC SCH (07:55)
[2020-12-14] MEDS: Nicotine 14 MG PATCH TD SCH (07:55)
[2020-12-15] MEDS: methylPREDNISolone Sod Succ 40 MG VIAL IVP SCH ×3 (04:40→20:32)
[2020-12-15] MEDS: Levothyroxine Sodium 50 MCG TAB PO SCH (06:06)
[2020-12-15] MEDS: GUAIFENESIN SF SOLN 200 MG/10 ML UDCUP PO SCH ×3 (06:06→21:20)
[2020-12-15 06:12] LABS: Hemoglobin 13.1 g/dL (14.0-18.0); Mean Corpuscular HGB CONC 33.1 g/dL (32.0-36.0); Mean Corpuscular Hemoglobin 31.4 pg (27.0-31.0); Mean Corpuscular Volume 94.9 fL (78.0-98.0); Mean Platelet Volume 7.3 fL (7.4-10.4); Platelet Count 281 thou/uL (130-400); RBC Distribution Width 12.4 % (11.5-14.5); Red Blood Cell (RBC) Count 4.16 mill/uL (4.70-6.10); White Blood Cell (WBC) Count 12.4 thou/uL (4.8-10.8)
[2020-12-15 06:26] LABS: Band 8 % (5-11); Lymphocytes 16 % (21-51); MDiff Complete? YES; Monocytes 8 % (0-10); Neutrophil 68 % (42-75); Platelet Morphology Comment Appears Adequate
[2020-12-15 06:32] LABS: Anion Gap 13 mmol/L (10-20); BUN (Urea Nitrogen) 21 mg/dL (8.4-25.7); Calc. Creatinine Clearance 88 mL/min (70-130); Calcium 8.8 mg/dL (7.8-10.44); Carbon Dioxide 36 mmol/L (23-31); Chloride 97 mmol/L (98-107); Glucose 103 mg/dL (83-110); Potassium 3.8 mmol/L (3.5-5.1); Sodium 142 mmol/L (136-145)
[2020-12-15] MEDS: Metoclopramide HCl 10 MG/2 ML VIAL IVP SCH ×3 (06:59→19:00)
[2020-12-15] MEDS: Budesonide 0.5 MG/2 ML NEB NEB SCH ×2 (07:34→19:20)
[2020-12-15] MEDS: Famotidine 20 MG TAB PO SCH ×2 (09:38→20:32)
[2020-12-15] MEDS: Enoxaparin Sodium 40 MG/0.4 ML SYRINGE SC SCH (09:39)
[2020-12-15] MEDS: Nicotine 14 MG PATCH TD SCH (09:41)
[2020-12-15] MEDS ORDERED: Methyl Salicylate/Menthol 85 GM TUBE TOP PRN (13:28)
[2020-12-16] MEDS: Metoclopramide HCl 10 MG/2 ML VIAL IVP SCH ×4 (00:02→17:45)
[2020-12-16 04:13] LABS: Anion Gap 14 mmol/L (10-20); BUN (Urea Nitrogen) 26 mg/dL (8.4-25.7); Calc. Creatinine Clearance 67 mL/min (70-130); Calcium 9.2 mg/dL (7.8-10.44); Carbon Dioxide 32 mmol/L (23-31); Chloride 97 mmol/L (98-107); Glucose 146 mg/dL (83-110); Sodium 139 mmol/L (136-145)
[2020-12-16] MEDS: methylPREDNISolone Sod Succ 40 MG VIAL IVP SCH ×2 (04:23→12:38)
[2020-12-16 04:37] LABS: Band 3 % (5-11); Hemoglobin 13.7 g/dL (14.0-18.0); Lymphocytes 9 % (21-51); MDiff Complete? YES; Mean Corpuscular Hemoglobin 31.2 pg (27.0-31.0); Mean Corpuscular Volume 94.4 fL (78.0-98.0); Neutrophil 87 % (42-75); Platelet Count 308 thou/uL (130-400); Platelet Morphology Comment Appears Adequate; RBC Distribution Width 12.3 % (11.5-14.5); RBC Morphology Normal; Reactive Lymphocytes 1 % (0-10); Red Blood Cell (RBC) Count 4.38 mill/uL (4.70-6.10); White Blood Cell (WBC) Count 13.3 thou/uL (4.8-10.8)
[2020-12-16] MEDS: Levothyroxine Sodium 50 MCG TAB PO SCH (05:28)
[2020-12-16] MEDS: GUAIFENESIN SF SOLN 200 MG/10 ML UDCUP PO SCH ×3 (05:28→21:31)
[2020-12-16] MEDS: Budesonide 0.5 MG/2 ML NEB NEB SCH ×2 (06:54→19:01)
[2020-12-16] MEDS: Enoxaparin Sodium 40 MG/0.4 ML SYRINGE SC SCH (10:16)
[2020-12-16] MEDS: Nicotine 14 MG PATCH TD SCH (10:17)
[2020-12-16] MEDS: Famotidine 20 MG TAB PO SCH ×2 (10:17→21:30)
[2020-12-17] MEDS ORDERED: Lidocaine 1% w/Epinephrine 1:100K 20 ML VIAL ONE (01:50)
[2020-12-17] MEDS: Metoclopramide HCl 10 MG/2 ML VIAL IVP SCH ×4 (02:16→17:27)
[2020-12-17] MEDS: GUAIFENESIN SF SOLN 200 MG/10 ML UDCUP PO SCH ×3 (05:48→22:28)
[2020-12-17] MEDS: Levothyroxine Sodium 50 MCG TAB PO SCH (05:49)
[2020-12-17] MEDS: Budesonide 0.5 MG/2 ML NEB NEB SCH ×2 (06:39→18:15)
[2020-12-17 07:04] LABS: Band 3 % (5-11); Eosinophils 1 % (0-10); Hemoglobin 14.4 g/dL (14.0-18.0); Lymphocytes 15 % (21-51); MDiff Complete? YES; Mean Corpuscular HGB CONC 32.8 g/dL (32.0-36.0); Mean Corpuscular Hemoglobin 31.2 pg (27.0-31.0); Mean Corpuscular Volume 95.1 fL (78.0-98.0); Monocytes 9 % (0-10); Neutrophil 68 % (42-75); Platelet Count 281 thou/uL (130-400); Platelet Morphology Comment Appears Adequate; RBC Distribution Width 12.4 % (11.5-14.5); Reactive Lymphocytes 4 % (0-10); Red Blood Cell (RBC) Count 4.63 mill/uL (4.70-6.10); White Blood Cell (WBC) Count 14.8 thou/uL (4.8-10.8)
[2020-12-17 07:08] LABS: Anion Gap 12 mmol/L (10-20); BUN (Urea Nitrogen) 30 mg/dL (8.4-25.7); Calc. Creatinine Clearance 0 mL/min (70-130); Calcium 9.3 mg/dL (7.8-10.44); Carbon Dioxide 33 mmol/L (23-31); Chloride 99 mmol/L (98-107); Glucose 110 mg/dL (83-110); Potassium 4.1 mmol/L (3.5-5.1); Sodium 140 mmol/L (136-145)
[2020-12-17] MEDS: predniSONE 20 MG TAB PO SCH (08:27)
[2020-12-17] MEDS: Famotidine 20 MG TAB PO SCH ×2 (08:27→21:52)
[2020-12-17] MEDS: Enoxaparin Sodium 40 MG/0.4 ML SYRINGE SC SCH (08:27)
[2020-12-17] MEDS: Scopolamine 1.5 mg/72 hour Patch TD SCH (12:07)
[2020-12-17] MEDS: Nicotine 14 MG PATCH TD SCH (12:07)
[2020-12-17] MEDS ORDERED: Haloperidol Lactate 5 MG/ML VIAL IM SCH (15:00)
[2020-12-17] MEDS: Haloperidol Lactate 5 MG/ML VIAL IM SCH (21:54)
[2020-12-18] MEDS: Metoclopramide HCl 10 MG/2 ML VIAL IVP SCH ×4 (01:10→17:33)
[2020-12-18 05:05] LABS: Band 3 % (5-11); Hemoglobin 13.4 g/dL (14.0-18.0); Hypochromia SLIGHT = 6-15 cells (100X) (0-5/hpf); Lymphocytes 33 % (21-51); MDiff Complete? YES; Mean Corpuscular HGB CONC 32.7 g/dL (32.0-36.0); Mean Corpuscular Hemoglobin 31.4 pg (27.0-31.0); Mean Platelet Volume 7.5 fL (7.4-10.4); Monocytes 5 % (0-10); Neutrophil 59 % (42-75); Platelet Count 272 thou/uL (130-400); Platelet Morphology Comment Appears Adequate; RBC Distribution Width 12.5 % (11.5-14.5); Red Blood Cell (RBC) Count 4.27 mill/uL (4.70-6.10); White Blood Cell (WBC) Count 10.4 thou/uL (4.8-10.8)
[2020-12-18 05:18] LABS: Anion Gap 11 mmol/L (10-20); BUN (Urea Nitrogen) 26 mg/dL (8.4-25.7); Calc. Creatinine Clearance 64 mL/min (70-130); Calcium 8.9 mg/dL (7.8-10.44); Carbon Dioxide 34 mmol/L (23-31); Chloride 101 mmol/L (98-107); Glucose 134 mg/dL (83-110); Potassium 4.2 mmol/L (3.5-5.1); Sodium 142 mmol/L (136-145)
[2020-12-18] MEDS: Haloperidol Lactate 5 MG/ML VIAL IM SCH ×3 (06:23→21:38)
[2020-12-18] MEDS: Levothyroxine Sodium 50 MCG TAB PO SCH (06:23)
[2020-12-18] MEDS: GUAIFENESIN SF SOLN 200 MG/10 ML UDCUP PO SCH ×3 (06:23→21:38)
[2020-12-18] MEDS: Budesonide 0.5 MG/2 ML NEB NEB SCH ×2 (07:16→18:40)
[2020-12-18] MEDS: Enoxaparin Sodium 40 MG/0.4 ML SYRINGE SC SCH (08:24)
[2020-12-18] MEDS: predniSONE 20 MG TAB PO SCH (08:25)
[2020-12-18] MEDS: Famotidine 20 MG TAB PO SCH ×2 (08:25→21:38)
[2020-12-18] MEDS: Nicotine 14 MG PATCH TD SCH (09:40)
[2020-12-19] MEDS: Metoclopramide HCl 10 MG/2 ML VIAL IVP SCH ×4 (00:30→17:41)
[2020-12-19 05:13] LABS: Band 2 % (5-11); Hemoglobin 13.3 g/dL (14.0-18.0); Lymphocytes 13 % (21-51); MDiff Complete? YES; Mean Corpuscular HGB CONC 32.1 g/dL (32.0-36.0); Mean Corpuscular Hemoglobin 30.8 pg (27.0-31.0); Mean Corpuscular Volume 95.9 fL (78.0-98.0); Mean Platelet Volume 7.6 fL (7.4-10.4); Monocytes 5 % (0-10); Neutrophil 80 % (42-75); Platelet Count 270 thou/uL (130-400); Platelet Morphology Comment Appears Adequate; RBC Distribution Width 12.5 % (11.5-14.5); Red Blood Cell (RBC) Count 4.31 mill/uL (4.70-6.10); White Blood Cell (WBC) Count 15.8 thou/uL (4.8-10.8)
[2020-12-19 05:16] LABS: Anion Gap 10 mmol/L (10-20); BUN (Urea Nitrogen) 25 mg/dL (8.4-25.7); Calc. Creatinine Clearance 69 mL/min (70-130); Calcium 8.8 mg/dL (7.8-10.44); Carbon Dioxide 33 mmol/L (23-31); Chloride 98 mmol/L (98-107); Glucose 168 mg/dL (83-110); Potassium 4.1 mmol/L (3.5-5.1); Sodium 137 mmol/L (136-145)
[2020-12-19] MEDS: Levothyroxine Sodium 50 MCG TAB PO SCH (05:55)
[2020-12-19] MEDS: GUAIFENESIN SF SOLN 200 MG/10 ML UDCUP PO SCH ×3 (05:55→21:28)
[2020-12-19] MEDS: Haloperidol Lactate 5 MG/ML VIAL IM SCH ×3 (05:55→21:29)
[2020-12-19] MEDS: Budesonide 0.5 MG/2 ML NEB NEB SCH ×2 (08:09→18:32)
[2020-12-19] MEDS: predniSONE 20 MG TAB PO SCH (08:28)
[2020-12-19] MEDS: Famotidine 20 MG TAB PO SCH ×2 (08:28→21:28)
[2020-12-19] MEDS: Enoxaparin Sodium 40 MG/0.4 ML SYRINGE SC SCH (08:28)
[2020-12-19] MEDS: Nicotine 14 MG PATCH TD SCH (10:25)
[2020-12-20] MEDS: Metoclopramide HCl 10 MG/2 ML VIAL IVP SCH ×4 (02:16→17:02)
[2020-12-20 05:01] LABS: Hemoglobin 12.5 g/dL (14.0-18.0); Mean Corpuscular HGB CONC 31.6 g/dL (32.0-36.0); Mean Corpuscular Hemoglobin 30.3 pg (27.0-31.0); Mean Corpuscular Volume 95.8 fL (78.0-98.0); Mean Platelet Volume 7.3 fL (7.4-10.4); Platelet Count 249 thou/uL (130-400); RBC Distribution Width 12.4 % (11.5-14.5); Red Blood Cell (RBC) Count 4.12 mill/uL (4.70-6.10); White Blood Cell (WBC) Count 15.9 thou/uL (4.8-10.8)
[2020-12-20 05:08] LABS: Anion Gap 12 mmol/L (10-20); BUN (Urea Nitrogen) 22 mg/dL (8.4-25.7); Calc. Creatinine Clearance 72 mL/min (70-130); Calcium 8.6 mg/dL (7.8-10.44); Carbon Dioxide 32 mmol/L (23-31); Chloride 97 mmol/L (98-107); Glucose 202 mg/dL (83-110); Potassium 4.1 mmol/L (3.5-5.1); Sodium 137 mmol/L (136-145)
[2020-12-20 05:44] LABS: Band 6 % (5-11); Lymphocytes 9 % (21-51); MDiff Complete? YES; Monocytes 1 % (0-10); Neutrophil 84 % (42-75)
[2020-12-20] MEDS: Haloperidol Lactate 5 MG/ML VIAL IM SCH ×3 (05:59→20:54)
[2020-12-20] MEDS: Levothyroxine Sodium 50 MCG TAB PO SCH (05:59)
[2020-12-20] MEDS: GUAIFENESIN SF SOLN 200 MG/10 ML UDCUP PO SCH ×3 (05:59→20:55)
[2020-12-20] MEDS: Budesonide 0.5 MG/2 ML NEB NEB SCH ×2 (07:44→18:38)
[2020-12-20] MEDS: Famotidine 20 MG TAB PO SCH ×2 (08:51→20:51)
[2020-12-20] MEDS: predniSONE 20 MG TAB PO SCH (08:51)
[2020-12-20] MEDS: Enoxaparin Sodium 40 MG/0.4 ML SYRINGE SC SCH (08:52)
[2020-12-20] MEDS: Scopolamine 1.5 mg/72 hour Patch TD SCH (08:52)
[2020-12-20] MEDS: Nicotine 14 MG PATCH TD SCH (12:40)
[2020-12-20 14:03] VITALS: BMI 16.6
[2020-12-20] MEDS: Metoclopramide 10 MG/10 ML UDCUP PO SCH (20:52)
[2020-12-21] MEDS: Haloperidol Lactate 5 MG/ML VIAL IM SCH ×3 (05:37→21:52)
[2020-12-21] MEDS: Levothyroxine Sodium 50 MCG TAB PO SCH (05:37)
[2020-12-21] MEDS: GUAIFENESIN SF SOLN 200 MG/10 ML UDCUP PO SCH ×3 (05:37→21:52)
[2020-12-21 06:12] LABS: Mean Corpuscular HGB CONC 32.6 g/dL (32.0-36.0); Mean Corpuscular Hemoglobin 31.2 pg (27.0-31.0); Mean Corpuscular Volume 95.8 fL (78.0-98.0); Mean Platelet Volume 7.1 fL (7.4-10.4); Platelet Count 223 thou/uL (130-400); RBC Distribution Width 12.2 % (11.5-14.5); Red Blood Cell (RBC) Count 3.84 mill/uL (4.70-6.10); White Blood Cell (WBC) Count 12.5 thou/uL (4.8-10.8)
[2020-12-21 06:25] LABS: Band 4 % (5-11); Lymphocytes 14 % (21-51); MDiff Complete? YES; Monocytes 3 % (0-10); Neutrophil 79 % (42-75)
[2020-12-21 06:40] LABS: Anion Gap 11 mmol/L (10-20); BUN (Urea Nitrogen) 20 mg/dL (8.4-25.7); Calc. Creatinine Clearance 82 mL/min (70-130); Calcium 8.7 mg/dL (7.8-10.44); Carbon Dioxide 33 mmol/L (23-31); Chloride 97 mmol/L (98-107); Glucose 119 mg/dL (83-110); Potassium 4.3 mmol/L (3.5-5.1); Sodium 137 mmol/L (136-145)
[2020-12-21] MEDS: Budesonide 0.5 MG/2 ML NEB NEB SCH ×2 (07:45→18:41)
[2020-12-21] MEDS: Famotidine 20 MG TAB PO SCH ×2 (10:27→21:52)
[2020-12-21] MEDS: predniSONE 20 MG TAB PO SCH (10:28)
[2020-12-21] MEDS: Metoclopramide 10 MG/10 ML UDCUP PO SCH ×3 (10:28→21:52)
[2020-12-21] MEDS: Enoxaparin Sodium 40 MG/0.4 ML SYRINGE SC SCH (10:28)
[2020-12-21] MEDS: Nicotine 14 MG PATCH TD SCH (10:43)
[2020-12-22] MEDS: GUAIFENESIN SF SOLN 200 MG/10 ML UDCUP PO SCH ×3 (05:59→21:35)
[2020-12-22] MEDS: Haloperidol Lactate 5 MG/ML VIAL IM SCH ×3 (05:59→21:37)
[2020-12-22] MEDS: Levothyroxine Sodium 50 MCG TAB PO SCH (05:59)
[2020-12-22 06:59] LABS: Anion Gap 14 mmol/L (10-20); BUN (Urea Nitrogen) 23 mg/dL (8.4-25.7); Calc. Creatinine Clearance 79 mL/min (70-130); Calcium 8.9 mg/dL (7.8-10.44); Carbon Dioxide 29 mmol/L (23-31); Chloride 96 mmol/L (98-107); Glucose 156 mg/dL (83-110); Potassium 4.4 mmol/L (3.5-5.1); Sodium 135 mmol/L (136-145)
[2020-12-22 07:53] LABS: Band 10 % (5-11); Eosinophils 1 % (0-10); Hemoglobin 12.1 g/dL (14.0-18.0); Lymphocytes 12 % (21-51); MDiff Complete? YES; Mean Corpuscular HGB CONC 33.3 g/dL (32.0-36.0); Mean Corpuscular Volume 95.9 fL (78.0-98.0); Mean Platelet Volume 7.4 fL (7.4-10.4); Monocytes 1 % (0-10); Neutrophil 76 % (42-75); Platelet Count 254 thou/uL (130-400); RBC Distribution Width 12.2 % (11.5-14.5); Red Blood Cell (RBC) Count 3.79 mill/uL (4.70-6.10); White Blood Cell (WBC) Count 12.2 thou/uL (4.8-10.8)
[2020-12-22] MEDS: Budesonide 0.5 MG/2 ML NEB NEB SCH ×2 (08:24→19:10)
[2020-12-22] MEDS: Enoxaparin Sodium 40 MG/0.4 ML SYRINGE SC SCH (10:16)
[2020-12-22] MEDS: predniSONE 20 MG TAB PO SCH (10:16)
[2020-12-22] MEDS: Famotidine 20 MG TAB PO SCH ×2 (10:16→21:35)
[2020-12-22] MEDS: Metoclopramide 10 MG/10 ML UDCUP PO SCH ×3 (10:16→21:35)
[2020-12-22] MEDS: Nicotine 14 MG PATCH TD SCH (11:34)
[2020-12-22 13:55] VITALS: BP 143/80
[2020-12-23] MEDS: GUAIFENESIN SF SOLN 200 MG/10 ML UDCUP PO SCH ×2 (05:57→15:02)
[2020-12-23] MEDS: Haloperidol Lactate 5 MG/ML VIAL IM SCH ×2 (05:58→15:03)
[2020-12-23] MEDS: Levothyroxine Sodium 50 MCG TAB PO SCH (05:58)
[2020-12-23 06:04] LABS: Hemoglobin 12.5 g/dL (14.0-18.0); Mean Corpuscular HGB CONC 32.8 g/dL (32.0-36.0); Mean Corpuscular Hemoglobin 31.5 pg (27.0-31.0); Mean Platelet Volume 7.5 fL (7.4-10.4); Platelet Count 284 thou/uL (130-400); RBC Distribution Width 12.2 % (11.5-14.5); Red Blood Cell (RBC) Count 3.96 mill/uL (4.70-6.10); White Blood Cell (WBC) Count 12.7 thou/uL (4.8-10.8)
[2020-12-23 06:19] LABS: Anion Gap 15 mmol/L (10-20); BUN (Urea Nitrogen) 21 mg/dL (8.4-25.7); Calc. Creatinine Clearance 74 mL/min (70-130); Calcium 8.9 mg/dL (7.8-10.44); Carbon Dioxide 30 mmol/L (23-31); Chloride 94 mmol/L (98-107); Glucose 183 mg/dL (83-110); Potassium 4.2 mmol/L (3.5-5.1); Sodium 135 mmol/L (136-145)
[2020-12-23 06:26] LABS: Band 12 % (5-11); Lymphocytes 7 % (21-51); MDiff Complete? YES; Monocytes 8 % (0-10); Neutrophil 73 % (42-75)
[2020-12-23] MEDS: Budesonide 0.5 MG/2 ML NEB NEB SCH (07:44)
[2020-12-23] MEDS: Metoclopramide 10 MG/10 ML UDCUP PO SCH ×2 (10:15→15:02)
[2020-12-23] MEDS: Enoxaparin Sodium 40 MG/0.4 ML SYRINGE SC SCH (10:17)
[2020-12-23] MEDS: Nicotine 14 MG PATCH TD SCH (10:17)
[2020-12-23] MEDS: Scopolamine 1.5 mg/72 hour Patch TD SCH (10:18)
[2020-12-23] MEDS: predniSONE 20 MG TAB PO SCH (10:18)
[2020-12-23] MEDS: Famotidine 20 MG TAB PO SCH (10:18)
[2020-12-23 18:07] VITALS: TEMP 98.7
== END 2020-12-23 17:55 | DRG 4 ==
LOC: ERS 01:50 → CCU 03:55
PROVIDERS: ADMIT Internal Medicine; ATTEND Hospitalist
PROC: 5A1955Z Respiratory Ventilation, Greater than 96 Consecutive Hours (ICD-10-PCS; principal; 2020-12-02)
PROC: 3E033XZ Introduction of Vasopressor into Peripheral Vein, Percutaneous Approach (ICD-10-PCS; 2020-12-02)
PROC: 0B110F4 Bypass Trachea to Cutaneous with Tracheostomy Device, Open Approach (ICD-10-PCS; 2020-12-10)
PROC: 0DH63UZ Insertion of Feeding Device into Stomach, Percutaneous Approach (ICD-10-PCS; 2020-12-10)
PROC: 0HQ1XZZ Repair Face Skin, External Approach (ICD-10-PCS; 2020-12-17)
DX: J44.1 Chronic obstructive pulmonary disease with (acute) exacerbation (principal); J96.21 Acute and chronic respiratory failure with hypoxia; I21.A1 Myocardial infarction type 2; J18.9 Pneumonia, unspecified organism; J96.22 Acute and chronic respiratory failure with hypercapnia; G93.49 Other encephalopathy; R78.81 Bacteremia; F17.210 Nicotine dependence, cigarettes, uncomplicated; Z20.822 Contact with and (suspected) exposure to COVID-19; E03.9 Hypothyroidism, unspecified; I95.9 Hypotension, unspecified; R77.8 Other specified abnormalities of plasma proteins; I49.3 Ventricular premature depolarization; R73.9 Hyperglycemia, unspecified; D64.9 Anemia, unspecified; B96.89 Other specified bacterial agents as the cause of diseases classified elsewhere; S01.111A Laceration without foreign body of right eyelid and periocular area, initial encounter; R45.1 Restlessness and agitation; R00.0 Tachycardia, unspecified; Z78.1 Physical restraint status; Z82.49 Family history of ischemic heart disease and other diseases of the circulatory system; Z79.890 Hormone replacement therapy; Z90.89 Acquired absence of other organs; Z88.7 Allergy status to serum and vaccine; W06.XXXA Fall from bed, initial encounter; Y92.230 Patient room in hospital as the place of occurrence of the external cause
CPT/HCPCS: 0240U; 36415; 36416; 36556; 36600; 51702; 70450; 71045; 71275; 74018; 80048; 80053; 80202; 81003; 81015; 82553; 82805; 83036; 83605; 83735; 83880; 84443; 84484; 85007; 85025; 85027; 85379; 87040; 87070; 87086; 87149; 87205; 93005; 93306; 94002; 94003; 94640; 96365; 96366; 96368; 96375; J0171; J0692; J1630; J1650; J2060; J2250; J2270; J2704; J2765; J2920; J3010; J3370; J3475; J3480; J3490; J7512; J7620; J7626; Q9967; S0020